=== PATIENT | male | born 1965 | race Caucasian/White ===

== ENCOUNTER 2022-04-08 11:10 | Outpatient (CLI) | payer OTHER, SELFPAY ==
--- NOTE | 2022-04-08 11:00 | USCV_ITS ---
Miguel Garcia Age: 56 Gender: M : 1965 Exam Date: 04/08/2022 11:28 Ordering Phys: Carter Haynes MD Technologist: ISAEL Exam Location: [facility] [place]_ Indication: r/o venous abnormalities. right medial thigh mass PROCEDURES: Venous duplex imaging was performed in only the right lower extremity. The following venous structures were evaluated: common femoral vein, profunda vein, proximal portion of the greater saphenous vein, superficial femoral vein, and the popliteal vein. In addition, the posterior tibial and peroneal trunk were evaluated. Serial compression, augmentation maneuvers, and spectral Doppler flow evaluation were performed. FINDINGS: Normal 2-D Doppler and augmentation and compressibility throughout the lower extremity venous structures. Additional imaging through the proximal calf veins also reveals no thrombus. Limited evaluation of the greater saphenous vein is patent with no thrombus.. There is a large lump medial upper right thigh. This appears to be a varicosity containing thrombus. No flow within. The right GSV appears to be free of thrombus. CONCLUSIONS Large acute appearing thrombosed varicosity in the upper thigh measuring 2.3 x 2.0 x 2.9cm. This is superficial but drains to the Greater saphenous vein. Consider Anticoagulation due to GSV drainage. Remainder of Right lower extremity vessels are patent. Dr. Haynes not currently available via the log haul operator. Message left for Dr Haynes at 1200 on 04/08/22 at [facility]. Dillan Brenner MD (Electronically Signed) Final Date: 08 April 2022 11:56 Amended: 08 April 2022 12:22 C
== END 2022-04-08 11:11 | disposition home or self-care (01) ==
PROVIDERS: Family Provider Family Medicine; PCP Family Medicine; Visit Provider Family Medicine
DX: I83.91 Asymptomatic varicose veins of right lower extremity (principal); M79.604 Pain in right leg; R03.0 Elevated blood-pressure reading, without diagnosis of hypertension; R22.41 Localized swelling, mass and lump, right lower limb; B35.1 Tinea unguium
CPT/HCPCS: 80053; 82465; 85025; 93971

== ENCOUNTER 2022-08-13 13:15 | Outpatient (CLI) | payer OTHER, SELFPAY ==
--- NOTE | 2022-08-13 13:00 | USCV_ITS ---
Miguel Garcia Age: 57 Gender: M : 1965 Exam Date: 08/13/2022 13:37 Ordering Phys: Carter Haynes MD Technologist: TUCKER Exam Location: [facility] [place] Indication: Superficial varicose vein thrombosis. Was on blood thinners for 45 days ending on 05/27/2022 HISTORY: Superficial varicose vein thrombosis. PROCEDURES: Venous duplex imaging was performed in only the right lower extremity. The following venous structures were evaluated: common femoral vein, profunda vein, proximal portion of the greater saphenous vein, superficial femoral vein, and the popliteal vein. In addition, the posterior tibial and peroneal trunk were evaluated. Serial compression, augmentation maneuvers, and spectral Doppler flow evaluation were performed. FINDINGS: No evidence of DVT seen in any vessel visualized at this time. Varicose vein is the only vessel containing thrombosis. CONCLUSIONS No evidence of right lower extremity DVT. SVT varicose vein upper thigh measuring 2.3 x 1.3 x 0.6cm. This measures smaller today but persistent. Again this connects to the GSV comparison 04/10 Dillan Brenner MD (Electronically Signed) Final Date: 13 August 2022 15:27 S
== END 2022-08-13 13:16 | disposition home or self-care (01) ==
PROVIDERS: PCP Family Medicine; Visit Provider Family Medicine
DX: I82.811 Embolism and thrombosis of superficial veins of right lower extremity (principal)
CPT/HCPCS: 93971